=== PATIENT | male | born 1955 | race Caucasian/White ===

== ENCOUNTER 2019-07-06 07:03 | Observation (INO) | payer BC ==
[2019-07-05 14:28] LABS: BASOPHIL % 0.5 % (0-2); PLATELET COUNT 208 x10^3mcL (130-400); RED CELL DISTRIBUTION WIDTH 12.4 % (11.5-14.5)
[~2019-07-06] VITALS: Ht 172.7 cm; Wt 87.1 kg
[2019-07-06 08:07] VITALS: BP 153/61
[2019-07-06] MEDS ORDERED: METFORMIN HCL500 M4 PO (08:36)
[2019-07-06] MEDS ORDERED: ZESTRIL10 MG PO (08:36)
[2019-07-06] MEDS ORDERED: SIMVASTATIN5 M2 PO (08:36)
[2019-07-06] MEDS ORDERED: NATURE'S BLEND400 I2 PO (08:37)
[2019-07-06 14:50] VITALS: BP 116/59
[2019-07-06 17:17] VITALS: BP 136/56
[2019-07-06 21:15] VITALS: BP 120/60
[2019-07-07 05:53] VITALS: BP 126/70
[2019-07-07 07:16] LABS: BASOPHIL % 0.3 % (0-2); PLATELET COUNT 149 x10^3mcL (130-400); RED CELL DISTRIBUTION WIDTH 12.5 % (11.5-14.5)
[2019-07-07 07:36] LABS: CALCIUM 8.7 mg/dL (8.5-10.1); CARBON DIOXIDE 24.6 mmol/L (21-32); CHLORIDE SERUM 105 mmol/L (98-107); CREATININE SERUM 0.7 mg/dL (0.7-1.3); GFR1 > 60 mL/min; GLUCOSE SERUM 145 mg/dL (74-106); POTASSIUM SERUM 3.8 mmol/L (3.5-5.1); SODIUM SERUM 137 mmol/L (136-145)
[2019-07-07 08:48] VITALS: BP 119/62
[2019-07-07 09:25] VITALS: BP 119/62
== END 2019-07-07 14:52 | disposition home or self-care (01) ==
LOC: EDBD 07:03 → DS 07:03 → MU 13:04
PROVIDERS: ADMIT Orthopaedic Surgery
DX: M17.12 Unilateral primary osteoarthritis, left knee (principal)
CPT/HCPCS: 82962; 97112-GP; 97116-GP; 97530-GP; G0378; J0690; J1885; J2250; J2270; J2704; J3010; J3490; J7030; Q0092